=== PATIENT | male | born 1990 | race Caucasian/White ===

== ENCOUNTER 2024-09-27 00:24 | Emergency (ER) | payer OTHER, SELFPAY ==
[2024-09-27 00:49] VITALS: BP 119/79; PULSE 60; RESP 16; TEMP 36.6; O2SAT 100; BMI 27.4
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
[2024-09-27 01:56] VITALS: BP 108/71; PULSE 60; RESP 16; TEMP 37; O2SAT 100
[2024-09-27 01:57] VITALS: BP 108/71; PULSE 60; RESP 16; TEMP 37; O2SAT 100
== END 2024-09-27 01:58 | disposition home or self-care (01) ==
PROVIDERS: Emergency Provider Internal Medicine
DX: S39.012A Strain of muscle, fascia and tendon of lower back, initial encounter (principal); V43.52XA Car driver injured in collision with other type car in traffic accident, initial encounter; M25.561 Pain in right knee; Y93.89 Activity, other specified; Y92.414 Local residential or business street as the place of occurrence of the external cause; Y99.9 Unspecified external cause status
CPT/HCPCS: 99283; 99284